=== PATIENT | female | born 1935 | race Caucasian/White ===

== ENCOUNTER 2021-05-17 18:47 | Inpatient (IN) | payer MEDICARE, BC ==
[~2021-05-17] VITALS: Ht 160 cm; Wt 49.0 kg
--- NOTE | 2021-05-17 20:03 | NUR ---
URINE SAMPLE AND COVID SWAB SENT TO LAB
[2021-05-17 20:11] LABS: BASOPHILS # (AUTO) 0.1 K/uL (0.0-0.2); EOSINOPHILS % (AUTO) 2.3 % (0.0-6.0); HEMATOCRIT 32 % (33-45); HEMOGLOBIN 10.6 g/dL (11.5-14.8); LYMPHOCYTES # (AUTO) 1.4 K/uL (0.8-4.8); LYMPHOCYTES % (AUTO) 23.1 % (20.0-44.0); MEAN CORPUSCULAR HGB CONC 33 g/dl (31.0-36.0); MEAN CORPUSCULAR VOLUME 96 fL (82-100); MONOCYTES # (AUTO) 0.7 K/uL (0.1-1.30); MONOCYTES % (AUTO) 10.8 % (2.0-12.0); NEUTROPHILS # (AUTO) 3.8 K/uL (1.8-8.9); NEUTROPHILS % (AUTO) 62.8 % (43.0-81.0); PLATELET COUNT (AUTO) 227 K/uL (150-450); RED BLOOD CELL COUNT(AUTO) 3.33 MIL/uL (4.0-5.2)
[2021-05-17 20:14] LABS: BILIRUBIN,URINE NEGATIVE (NEGATIVE); COLOR,URINE YELLOW (YELLOW); LEUKOCYTE ESTERASE ,URINE NEGATIVE (NEGATIVE); NITRITE, URINE NEGATIVE (NEGATIVE); PH,URINE 5.5 (5.0-8.0); PROTEIN,URINE 30 mg/dl (NEGATIVE); UGLUCOSE NEGATIVE (NEGATIVE); UROBILINOGEN,URINE 0.2 EU/dL (0.2)
[2021-05-17 20:27] LABS: ALANINE AMINOTRANSFERASE 47 U/L (12-78); ALBUMIN 3.3 g/dL (3.4-5.0); ALCOHOL, BLOOD < 3 mg/dL (0-0); ALKALINE PHOSPHATASE 141 U/L (46-116); ASPARTATE AMINOTRANSFERASE 23 U/L (15-37); BILIRUBIN,DIRECT 0.1 mg/dL (0.0-0.2); BILIRUBIN,TOTAL 0.3 mg/dL (0.2-1.0); CALCIUM, SERUM 8.7 mg/dL (8.5-10.1); CARBON DIOXIDE 27 mmol/L (21-32); CHLORIDE 103 mmol/L (98-107); CREATININE 0.8 mg/dL (0.6-1.3); GLUCOSE 245 mg/dL (74-106); POTASSIUM 4.1 mmol/L (3.5-5.1); SODIUM SERUM 140 mmol/L (136-145); TOTAL PROTEIN, SERUM 6.9 g/dL (6.4-8.2); UREA NITROGEN, BLOOD 23 mg/dL (7-18)
--- NOTE | 2021-05-17 20:28 | NUR ---
GOT BED 220-B
[2021-05-17 20:30] LABS: ACETAMINOPHEN 0 ug/ml (10-30)
[2021-05-17 20:33] LABS: RBC,URINE 0-2 /HPF (0-2); WBC,URINE 0-2 /HPF (0-3)
[2021-05-17 20:34] LABS: BACTERIA,URINE RARE /HPF (None Seen); MUCUS,URINE Many /LPF (None Seen)
[2021-05-17] MEDS ORDERED: MELO-107 PO (21:08)
[2021-05-17] MEDS ORDERED: FLUT16SP BNOSTRILS (21:08)
[2021-05-17] MEDS ORDERED: INSU100V7 SQ ×2 (21:08)
[2021-05-17] MEDS ORDERED: PROP50TA3 PO (21:08)
[2021-05-17] MEDS ORDERED: TRAM50TA2 PO (21:08)
[2021-05-17] MEDS ORDERED: GABA-532 PO (21:08)
[2021-05-17] MEDS ORDERED: ROSU10TA2 PO (21:08)
[2021-05-17] MEDS ORDERED: DULO30CA2 PO (21:08)
[2021-05-17] MEDS ORDERED: LISI10TA30 PO (21:08)
[2021-05-17] MEDS ORDERED: CHOL400T11 PO (21:08)
[2021-05-17] MEDS ORDERED: INSU100I28 SQ (21:08)
[2021-05-17] MEDS ORDERED: QUET25TA PO (21:08)
--- NOTE | 2021-05-17 21:20 | NUR ---
RN NOTES RECEIVED ER ADMISSION REPORT FROM, [facility]. ALL PERTINENT ADMISSION INFO REGARDING PT NOTED. WILL WAIT FOR PT TO BE TRANSFERRED TO UNIT AND ADDRESS NEEDS ACCORDINGLY. ACCOUNT PLANNER MADE AWARE.
--- NOTE | 2021-05-17 21:24 | NUR ---
REPORT NIKKI BUENO AT [facility]
--- NOTE | 2021-05-17 22:05 | NUR ---
RN NOTES RECEIVED PT FROM ER VIA RJRELIE ACCOMPANIED BY 1 ER STAFF AND TRANSFERRED TO BED VIA 1 PERSON ASSIST. PT IS A/OX2-3; ON ROOM AIR WITH RESPIRATIONS EVEN AND UNLABORED. WILL DO COMPREHENSIVE PHYSICAL ASSESSMENT AND PATIENT CARE. CALL LIGHT WITHIN REACH, SAFETY MEASURES AND ISOLATION PRECAUTION IN PLACE, WILL CONTINUE MONITOR AND ASSESS THROUGHOUT THE SHIFT. WILL CARRY OUT MD ORDERS ACCORDINGLY. SUPERVISOR COMPOUNDING AND FINISHING MADE AWARE.
--- NOTE | 2021-05-17 22:06 | NUR ---
RN NOTES ADMITTED THIS 86Y/O FEMALE PT, ADMIT FROM [facility] ER; INTIALLY FROM [facility]ING [facility] , ADMITTED TO [facility] ON 5150 HOLD, PER HOLD DTO; GRAVELY DISABLE VERBALLY AGGRESSIVE TOWARDS STAFF, INCREASED AGITATION, UNABLE TO CONTACT FOR SAFETY, UPON FACE TO FACE ASSESSMENT PATIENT IS A/0X2-3; ANXIOUS, SUSPICIOUS, DISORGANIZED, EASILY AGITATED TRIGGERED BY UNFAMILIAR PLACE AND FACES. PT REFUSED FULL BODY/SKIN ASSESSMENT AND VITALS. UNABLE TO GET PERTINENT MEDICAL AND NON MEDICAL INFO DUE TO PT'S REFUSAL. FILM PRODUCER AND MD WILL BE NOTIFIED. BELONGINGS & CONTRABAND WERE DONE AND LISTED. PT ALSO REFUSED TO SIGN ALL ADMISSION PAPERWORK AND DOCUMENTS DUE TO MENTATION CONDITION. PT RIGHTS DISCUSS BY PUNCHER, PROVIDED TO PT, WITH HANDBOOK AND MEDICATION GUIDE, ENVIRONMENTAL SAFETY CHECK DONE, ENCOURAGED PT TO VERBALIZE CONCERNS TO STAFF, ORIENTED TO UNIT POLICY. PT IN NO ACUTE DISTRESS, V/S TAKEN AND RECORDED, DENIES OF ANY PAIN. WILL CONTINUE TO MONITOR AND ASSESS THROUGHOUT THE SHIFT
--- NOTE | 2021-05-17 22:10 | NUR ---
PATIENT TRANSFERRED TO 220
--- NOTE | 2021-05-17 22:14 | NUR ---
RN NOTES INITIAL VITAL SIGNS TAKEN; PT REFUSED FOR BP CHECK. EXPLAINED RISKS AND BENEFITS BUT PT STILL REFUSED. RN ABLE TO GET TEMP, RR, HR AND O2 SAT. SHEARING MACHINE OPERATOR MADE AWARE.
--- NOTE | 2021-05-17 22:15 | NUR ---
RN NOTES PT REFUSED SKIN CHECK/ASSESSMENT, RISK AND BENEFITS EXPLAINED BUT PT STILL REFUSED. CAIN PALMER MADE AWARE. WILL RE-ATTEMPT WITH THE SHIFT. WILL CONTINUE TO MONITOR AND PROVIDE SAFE AND COMFORTABLE ENVIRONMENT FOR THE PT. Addendum: 05/18/21 at 0415 by JEREMÍAS KHALIL RN RN NOTES PT REFUSED SKIN CHECK/ASSESSMENT, RISK AND BENEFITS EXPLAINED BUT PT STILL REFUSED. INTERNET MERCHANT MADE AWARE. WILL RE-ATTEMPT WITHIN THE SHIFT.PT ALSO REFUSED TO WEAR HOSPITAL GOWN. WILL CONTINUE TO MONITOR AND PROVIDE SAFE AND COMFORTABLE ENVIRONMENT FOR THE PT.
[2021-05-17] MEDS ORDERED: MAGNESIUM HYDROXIDE 30 ML UDC PO PRN (22:30)
[2021-05-17] MEDS ORDERED: BLOOD SUGAR DIAGNOSTIC 1 EACH STRIP IN ONE (22:30)
[2021-05-17] MEDS ORDERED: MAG HYDROX/AL HYDROX/SIMETH 30 ML UDC PO PRN (22:30)
--- NOTE | 2021-05-17 22:45 | NUR ---
RN NOTES PT REFUSED FOR BLOOD SUGAR CHECK; EXPLAINED RISK AND BENEFITS BUT PT STILL REFUSED. RN ACKNOWLEDGED. TRAIN CALLER MADE AWARE. WILL CONTINUE TO MONITOR AND PROVIDE SAFE ENVIRONMENT TO PT THROUGHOUT THE SHIFT.
--- NOTE | 2021-05-18 06:44 | NUR ---
RN NOTES TRIED CALL MR GLENNY VIZCAINO @[phone] TO NOTIFY ABOUT PT'S ADMISSION,; BUT WAS AVDISED THATS ITS A WRONG NUMBER. LABOR OPERATOR MADE AWARE. WILL ENDORSE TO AM SHIFT TO FOLLOW THROUGH.
[2021-05-18] MEDS: ACETAMINOPHEN 325 MG TABLET PO PRN (06:54)
--- NOTE | 2021-05-18 07:00 | NUR ---
RN CLOSING NOTE: PATIENT REMAINS IN ROOM IN NO SIGNS OF RESPIRATORY DISTRESS, PATIENT STILL ROOM AIR. SAFETY MEASURES IMPLEMENTED, BED IN LOWEST POSITION, LOCKED, SIDE RAILS UP, CALL LIGHT WITHIN REACH. ALL NEEDS AND ORDERS ADDRESSED DURING THE SHIFT.PATIENT KEPT CLEAN AND COMFORTABLE WITHIN THE SHIFT. PATIENT ENDORSED TO INCOMING SHIFT RN WITH STABLE VITAL SIGN AND FOR CONTINUITY OF CARE.
[2021-05-18] MEDS: clonazePAM 0.5 MG TABLET PO PRN ×2 (07:37→21:04)
--- NOTE | 2021-05-18 07:40 | NUR ---
RN-NOTES NOTED PATIENT VERY ANXIOUS UNABLE TO SIT STILL, PACING IN AND OUT HER ROOM. REDIRECTED AND KLONOPIN 0.25MG P.O GIVEN PRN ORDER. WILL CONT. MONITORING FOR SAFETY AND BEHAVIOR.
[2021-05-18 08:00] VITALS: BP 132/69
[2021-05-18] MEDS ORDERED: DEXTROSE 50%-WATER 50 ML DISP.SYRIN IV PRN (08:30)
--- NOTE | 2021-05-18 08:40 | NUR ---
RN-NOTES PATIENT IN THE DAY ROOM UP IN THE NEL CHAIR CALM AT THIS TIME,NO ACUTE DISTRESS NOTED.
[2021-05-18] MEDS: GABAPENTIN 300 MG CAPSULE PO SCH ×3 (09:37→16:34)
[2021-05-18] MEDS: CHOLECALCIFEROL (VITAMIN D 3) 400 UNIT TABLET PO SCH (09:37)
[2021-05-18] MEDS: TRAMADOL HCL 50 MG TABLET PO SCH ×2 (09:38→16:34)
[2021-05-18] MEDS: LISINOPRIL (10MG) 10 MG TABLET PO SCH (09:39)
[2021-05-18] MEDS: FLUTICASONE PROPIONATE 16 GM BOTTLE NS SCH (09:42)
[2021-05-18 09:57] LABS: BASOPHILS % (AUTO) 0.5 % (0.0-2.0); EOSINOPHILS % (AUTO) 0.9 % (0.0-6.0); HEMATOCRIT 33 % (33-45); HEMOGLOBIN 10.9 g/dL (11.5-14.8); LYMPHOCYTES # (AUTO) 0.7 K/uL (0.8-4.8); LYMPHOCYTES % (AUTO) 8.8 % (20.0-44.0); MEAN CORPUSCULAR HGB CONC 33 g/dl (31.0-36.0); MEAN CORPUSCULAR VOLUME 97 fL (82-100); MONOCYTES # (AUTO) 0.5 K/uL (0.1-1.30); MONOCYTES % (AUTO) 7.3 % (2.0-12.0); NEUTROPHILS # (AUTO) 6.1 K/uL (1.8-8.9); NEUTROPHILS % (AUTO) 82.5 % (43.0-81.0); PLATELET COUNT (AUTO) 232 K/uL (150-450); RED BLOOD CELL COUNT(AUTO) 3.44 MIL/uL (4.0-5.2); WHITE BLOOD COUNT (AUTO) 7.4 K/uL (4.3-11.0)
[2021-05-18 10:14] LABS: CHOLESTEROL 191 mg/dL (<200); HDL CHOLESTEROL 101 mg/dL (40-60); LDL 61 mg/dL (0-99); TRIGLYCERIDES 125 mg/dL (30-150)
[2021-05-18 10:17] LABS: ALBUMIN 3.4 g/dL (3.4-5.0); BILIRUBIN,TOTAL 0.5 mg/dL (0.2-1.0); CALCIUM, SERUM 8.8 mg/dL (8.5-10.1); POTASSIUM 4.1 mmol/L (3.5-5.1); TOTAL PROTEIN, SERUM 6.9 g/dL (6.4-8.2)
[2021-05-18] MEDS: INSULIN REGULAR, HUMAN 100 UNIT/ML 3 ML VIAL SQ PRN ×3 (10:33→17:30)
--- NOTE | 2021-05-18 10:37 | NUR ---
RN-NOTES RECEIVED A CALL FROM LAB REGARDING PATIENT BS OF 463MG/DL, DR. WOODRUFF MADE AWARE WITH T.O TO GIVE 15 UNITS OF REGULAR INSULIN. NOTED AND CARRIED OUT.
[2021-05-18] MEDS: BLOOD SUGAR DIAGNOSTIC 1 EACH STRIP VI SCH ×3 (11:55→21:45)
--- NOTE | 2021-05-18 15:49 | NUR ---
RN-CO: DR PAREKH WAS CALLED FOR NEURO CONSULT. LEFT MESSAGE.
[2021-05-18 16:00] VITALS: BP 152/90
[2021-05-18 19:58] VITALS: BP 156/83
--- NOTE | 2021-05-18 21:04 | NUR ---
PER NURSING ASSESSMENT, PT IS ANXIOUS AND AGITATED, WALKING UP AND DOWN THE HALLWAY AND RESTLESS. KLONOPIN 0.25MG PO Q4HR PRN ADMINISTERED AT THIS TIME FOR ANXIETY/ AGITATION. WILL CONTINUE TO MONITOR.
[2021-05-18] MEDS: QUETIAPINE FUMARATE 25 MG TABLET PO SCH (21:34)
[2021-05-18] MEDS: ATORVASTATIN 10 MG TABLET PO SCH (21:34)
[2021-05-18] MEDS: INSULIN GLARGINE, 100 UNIT/ML CARTRIDGE SQ SCH (21:45)
[2021-05-18] MEDS: *INSULIN REGULAR(HUMULIN R)HUM 100 UNIT/ML VIAL SQ PRN (21:48)
[2021-05-19] MEDS: ACETAMINOPHEN 325 MG TABLET PO PRN ×2 (06:16→20:02)
--- NOTE | 2021-05-19 06:16 | NUR ---
PT C/O ACHING PAIN. PER PT REQUEST TYLENOL 65OMG PO Q6HR PRN ADMINISTERED AT THIS TIME PER ORDER. WILL CONTINUE TO MONITOR
--- NOTE | 2021-05-19 06:38 | NUR ---
RN CLOSING NOTES PATIENT AWAKE IN BED AT THIS TIME. PATIENT WAS AGITATED, ADMINISTERED MEDICATION AND PAIN MEDICATION PER ORDER . PT DENIES SI/HI. DENIES VISUAL AND AUDITORY HALLUCINATION. NO TREMORS OR EPS NOTED. SAFETY PRECAUTIONS IN PLACE AND MAINTAINED AT ALL TIMES. BED IN LOWEST LOCKED POSITION, HOB ELEVATED, SIDE RAILS UP X2, CALL LIGHT AND TABLE WITHIN REACH, WILL ENDORSE TO AM SHIFT NURSE FOR CO
[2021-05-19 08:00] VITALS: BP 115/69
[2021-05-19] MEDS: BLOOD SUGAR DIAGNOSTIC 1 EACH STRIP VI SCH ×4 (08:12→22:14)
[2021-05-19] MEDS: INSULIN ASPART/LISPRO 100 UNIT/ML CARTRIDGE SQ SCH (09:00)
--- NOTE | 2021-05-19 09:00 | NUR ---
[facility]/RN ACCUCHECK WITH BS= 82. NO SCHEDULED INSULIN COVERAGE. DR WOODRUFF MADE AWARE AND AGREED.
[2021-05-19] MEDS: MELOXICAM 7.5 MG TABLET PO SCH (09:33)
[2021-05-19] MEDS: GABAPENTIN 300 MG CAPSULE PO SCH ×3 (09:33→17:38)
[2021-05-19] MEDS: DULOXETINE HCL 30 MG CAPSULE.DR PO SCH (09:33)
[2021-05-19] MEDS: QUETIAPINE FUMARATE 25 MG TABLET PO SCH ×2 (09:33→21:36)
[2021-05-19] MEDS: CHOLECALCIFEROL (VITAMIN D 3) 400 UNIT TABLET PO SCH (09:33)
[2021-05-19] MEDS: LISINOPRIL (10MG) 10 MG TABLET PO SCH (09:34)
[2021-05-19] MEDS: FLUTICASONE PROPIONATE 16 GM BOTTLE NS SCH (09:34)
[2021-05-19] MEDS: TRAMADOL HCL 50 MG TABLET PO SCH ×2 (09:52→17:38)
--- NOTE | 2021-05-19 10:50 | NUR ---
[facility]: J CARLOS contacted [facility] directly to Deanne ([phone]) to see if pt is welcomed back, however, mailbox was full and this comic book writer was unable to leave a voicemail. J CARLOS contacted [place] directly ([phone]) directly spoke with ESTELA Tse ([phone]) ext [phone] who stated would have to be stable upon dc.
--- NOTE | 2021-05-19 10:50 | NUR ---
J CARLOS Initial Discharge Plan: Patient currently resides at [facility] located at [id number] [place] [id number]; ([phone]). Patient would want to return back. J CARLOS contacted [facility] directly to Deanne ([phone]) to see if pt is welcomed back, however, mailbox was full and this flex o writer operator was unable to leave a voicemail. J CARLOS contacted [place] directly ([phone]) directly spoke with ESTELA Tse ([phone]) ext [phone] who stated would have to be stable upon dc. J CARLOS will work with family, treatment team, and doctor to help coordinate appropriate discharge.
--- NOTE | 2021-05-19 10:56 | NUR ---
J CARLOS Family Contact: J CARLOS contacted patient's son Newton ([phone]) to discuss treatment and discharge plan. SW left a detailed voicemail wanting to gather collateral. J CARLOS mentioned in voicemail that [facility] will take pt back if pt is stable and does not have any behavioral issues, but appeared to be doubtful of taking pt back (spoke with Carmencita PALMER from [facility]).
[2021-05-19] MEDS: *INSULIN REGULAR(HUMULIN R)HUM 100 UNIT/ML VIAL SQ PRN (12:04)
--- NOTE | 2021-05-19 12:15 | NUR ---
[facility]/RN ACCUCHECK WITH VK=005. INSULIN 10 UNITS SQ GIVEN PER SCALE. DR. WOODRUFF CALLED FOR ORDERS VIA [employer].
--- NOTE | 2021-05-19 13:06 | NUR ---
GPS/RN DR WOODRUFF CALLED BACK. NEW ORDER: CONTINUE TO MONITOR.
[2021-05-19 16:00] VITALS: BP 118/67
[2021-05-19] MEDS: INSULIN REGULAR, HUMAN 100 UNIT/ML 3 ML VIAL SQ PRN ×2 (17:43→22:20)
--- NOTE | 2021-05-19 20:10 | NUR ---
PRN TYLENOL 650 MG GIVEN VIA PO PER PATIENT REQUEST WITH PAIN SCALE 3/10 ON BILATERAL LEG. SON IS INTERACTING WITH THE PATIENT. WILL CONTINUE MONITOR
[2021-05-19 20:22] VITALS: BP 155/47
[2021-05-19] MEDS: ATORVASTATIN 10 MG TABLET PO SCH (21:36)
[2021-05-19] MEDS: INSULIN GLARGINE, 100 UNIT/ML CARTRIDGE SQ SCH (22:18)
[2021-05-19] MEDS: clonazePAM 0.5 MG TABLET PO PRN (23:07)
[2021-05-20] MEDS: BLOOD SUGAR DIAGNOSTIC 1 EACH STRIP VI SCH ×4 (07:29→22:04)
[2021-05-20 08:00] VITALS: BP 138/85
[2021-05-20] MEDS: GABAPENTIN 300 MG CAPSULE PO SCH ×3 (08:10→16:22)
[2021-05-20] MEDS: MELOXICAM 7.5 MG TABLET PO SCH (08:10)
[2021-05-20] MEDS: CHOLECALCIFEROL (VITAMIN D 3) 400 UNIT TABLET PO SCH (08:11)
[2021-05-20] MEDS: DULOXETINE HCL 30 MG CAPSULE.DR PO SCH (08:11)
[2021-05-20] MEDS: QUETIAPINE FUMARATE 25 MG TABLET PO SCH ×2 (08:12→21:12)
[2021-05-20] MEDS: LISINOPRIL (10MG) 10 MG TABLET PO SCH (08:13)
[2021-05-20] MEDS: TRAMADOL HCL 50 MG TABLET PO SCH ×3 (08:14→17:28)
[2021-05-20] MEDS: INSULIN ASPART/LISPRO 100 UNIT/ML CARTRIDGE SQ SCH (09:41)
[2021-05-20] MEDS: FLUTICASONE PROPIONATE 16 GM BOTTLE NS SCH (09:42)
[2021-05-20 16:00] VITALS: BP 149/78
[2021-05-20] MEDS: *INSULIN REGULAR(HUMULIN R)HUM 100 UNIT/ML VIAL SQ PRN ×2 (17:16→21:30)
[2021-05-20 20:10] VITALS: BP 144/75
[2021-05-20] MEDS: ATORVASTATIN 10 MG TABLET PO SCH (21:11)
[2021-05-20] MEDS: INSULIN GLARGINE, 100 UNIT/ML CARTRIDGE SQ SCH (21:28)
[2021-05-20] MEDS: ACETAMINOPHEN 325 MG TABLET PO PRN (21:44)
--- NOTE | 2021-05-20 21:44 | NUR ---
[facility]-RN NOTES: LOWER BACK PAIN PATIENT C/O LOWER BACK PAIN. ON A PAIN SCALE OF 3/10. PRN ACETAMINOPHEN 650MG PO GIVEN ORDERED. WILL CONTINUE TO REASSESS.
[2021-05-20] MEDS: TEMAZEPAM 7.5 MG CAPSULE PO PRN (21:51)
--- NOTE | 2021-05-20 21:51 | NUR ---
[facility]-RN NOTES: INSOMNIA PATIENT C/O INABILITY TO SLEEP. PRN RESTORIL 7.5MG PO GIVEN ORDERED. WILL CONTINUE TO MONITOR.
[2021-05-21] MEDS: TRAMADOL HCL 50 MG TABLET PO SCH ×5 (00:20→17:05)
--- NOTE | 2021-05-21 00:36 | NUR ---
[facility]-RN NOTES: PATIENT REFUSED SCHEDULED TRAMADOL AT 0000. DESPITE OF EXPLANATION THE RISKS AND BENEFITS. PATIENT STATED, "I'M TIRED, I WANNA SLEEP". WILL CONTINUE TO MONITOR.
--- NOTE | 2021-05-21 07:19 | NUR ---
RN OPENING NOTES PATIENT AWAKE IN BED AT THIS TIME. PATIENT IS CALM. PT DENIES SI/HI. DENIES VISUAL AND AUDITORY HALLUCINATION. NO TREMORS OR EPS NOTED. SAFETY PRECAUTIONS IN PLACE AND MAINTAINED AT ALL TIMES. BED IN LOWEST LOCKED POSITION, HOB ELEVATED, SIDE RAILS UP X2, CALL LIGHT AND TABLE WITHIN REACH, WILL CONTINUE TO MONITOR
[2021-05-21] MEDS: ACETAMINOPHEN 325 MG TABLET PO PRN (07:26)
--- NOTE | 2021-05-21 07:26 | NUR ---
[facility]-RN NOTES: LOWER BACK PAIN PATIENT C/O LOWER BACK PAIN. ON A PAIN SCALE OF 3/10. PRN ACETAMINOPHEN 650MG PO GIVEN ORDERED. WILL CONTINUE TO REASSESS.
[2021-05-21] MEDS: BLOOD SUGAR DIAGNOSTIC 1 EACH STRIP VI SCH ×4 (07:44→22:14)
[2021-05-21] MEDS: INSULIN REGULAR, HUMAN 100 UNIT/ML 3 ML VIAL SQ PRN ×3 (07:44→17:08)
[2021-05-21 08:00] VITALS: BP 159/78
[2021-05-21] MEDS: FLUTICASONE PROPIONATE 16 GM BOTTLE NS SCH (08:16)
[2021-05-21] MEDS: GABAPENTIN 300 MG CAPSULE PO SCH ×3 (08:17→17:05)
[2021-05-21] MEDS: MELOXICAM 7.5 MG TABLET PO SCH (08:17)
[2021-05-21] MEDS: DULOXETINE HCL 30 MG CAPSULE.DR PO SCH (08:17)
[2021-05-21] MEDS: QUETIAPINE FUMARATE 25 MG TABLET PO SCH ×2 (08:17→21:23)
[2021-05-21] MEDS: CHOLECALCIFEROL (VITAMIN D 3) 400 UNIT TABLET PO SCH (08:17)
[2021-05-21] MEDS: LISINOPRIL (10MG) 10 MG TABLET PO SCH (08:18)
[2021-05-21] MEDS: INSULIN ASPART/LISPRO 100 UNIT/ML CARTRIDGE SQ SCH (08:18)
--- NOTE | 2021-05-21 08:45 | NUR ---
RN NOTE PATIENTS BLOOD SUGAR NOTED @ 55. NOTIFIED WHO GAVE NEW ORDER TO DC LANTUS 11 UNITS AT NIGHT. AND OKAY TO GIVE ORANGE JUICE.
[2021-05-21] MEDS: clonazePAM 0.5 MG TABLET PO PRN (13:32)
--- NOTE | 2021-05-21 13:32 | NUR ---
RN NOTE PATIENT IS RESTLESS AND AGITATED M/B TRYING TO GET OUT OF BED AND SEVERAL TIMES WITH NO APPARENT REASON. UNCOOPERATIVE TO STAFF. PRN KLONOPIN 0.25 GIVEN VIA PO. WILL CLOSELY MONITOR. SAFETY MAINTAINS.
[2021-05-21 16:00] VITALS: BP 113/73
--- NOTE | 2021-05-21 18:03 | NUR ---
RN CLOSING NOTES PATIENT AWAKE IN BED AT THIS TIME. PATIENT REMAINED STABLE THROUGHOUT SHIFT. PT IS CALM AT THIS TIME, PT DENIES SI/HI. DENIES VISUAL AND AUDITORY HALLUCINATION. NO TREMORS OR EPS NOTED. SAFETY PRECAUTIONS IN PLACE AND MAINTAINED AT ALL TIMES. BED IN LOWEST LOCKED POSITION, HOB ELEVATED, SIDE RAILS UP X2, CALL LIGHT AND TABLE WITHIN REACH, WILL ENDORSE TO ONCOMING SHIFT
[2021-05-21 19:56] VITALS: BP 127/77
[2021-05-21] MEDS: ATORVASTATIN 10 MG TABLET PO SCH (21:23)
[2021-05-21] MEDS: *INSULIN REGULAR(HUMULIN R)HUM 100 UNIT/ML VIAL SQ PRN (22:21)
[2021-05-22] MEDS: TRAMADOL HCL 50 MG TABLET PO SCH ×4 (00:41→18:08)
[2021-05-22] MEDS: BLOOD SUGAR DIAGNOSTIC 1 EACH STRIP VI SCH ×4 (07:35→21:18)
[2021-05-22 08:00] VITALS: BP 122/67
--- NOTE | 2021-05-22 08:49 | NUR ---
J CARLOS Family Contact: J CARLOS received a voicemail from son Newton ([phone]) who stated that he has found pt a new assisted living called [facility] and requested from this J CARLOS to contact director Renard ([phone]) to coordinate.
--- NOTE | 2021-05-22 08:50 | NUR ---
[facility]: J CARLOS contacted Director Renard ([phone]) to coordinate and he stated he is accepting pt but would want to evaluate pt on 05/22/2021 or 05/23/2021.
[2021-05-22] MEDS: FLUTICASONE PROPIONATE 16 GM BOTTLE NS SCH (09:29)
[2021-05-22] MEDS: DULOXETINE HCL 30 MG CAPSULE.DR PO SCH (09:38)
[2021-05-22] MEDS: LISINOPRIL (10MG) 10 MG TABLET PO SCH (09:38)
[2021-05-22] MEDS: GABAPENTIN 300 MG CAPSULE PO SCH ×3 (09:39→17:52)
[2021-05-22] MEDS: CHOLECALCIFEROL (VITAMIN D 3) 400 UNIT TABLET PO SCH (09:39)
[2021-05-22] MEDS: QUETIAPINE FUMARATE 25 MG TABLET PO SCH ×2 (09:40→21:06)
[2021-05-22] MEDS: MELOXICAM 7.5 MG TABLET PO SCH (09:40)
[2021-05-22] MEDS: INSULIN ASPART/LISPRO 100 UNIT/ML CARTRIDGE SQ SCH (09:52)
[2021-05-22] MEDS: INSULIN REGULAR, HUMAN 100 UNIT/ML 3 ML VIAL SQ PRN ×2 (12:38→17:25)
[2021-05-22 16:00] VITALS: BP 122/66
[2021-05-22] MEDS: ACETAMINOPHEN 325 MG TABLET PO PRN (19:32)
[2021-05-22 19:49] VITALS: BP 137/67
[2021-05-22] MEDS: clonazePAM 0.5 MG TABLET PO PRN (21:04)
[2021-05-22] MEDS: ATORVASTATIN 10 MG TABLET PO SCH (21:05)
[2021-05-22] MEDS: *INSULIN REGULAR(HUMULIN R)HUM 100 UNIT/ML VIAL SQ PRN (21:23)
[2021-05-22] MEDS: TEMAZEPAM 7.5 MG CAPSULE PO PRN (22:36)
[2021-05-23] MEDS: TRAMADOL HCL 50 MG TABLET PO SCH ×4 (00:09→17:22)
[2021-05-23 08:00] VITALS: BP 145/76
[2021-05-23] MEDS: INSULIN ASPART/LISPRO 100 UNIT/ML CARTRIDGE SQ SCH (08:05)
[2021-05-23] MEDS: FLUTICASONE PROPIONATE 16 GM BOTTLE NS SCH (08:13)
[2021-05-23] MEDS: BLOOD SUGAR DIAGNOSTIC 1 EACH STRIP VI SCH ×4 (08:13→22:00)
[2021-05-23] MEDS: CHOLECALCIFEROL (VITAMIN D 3) 400 UNIT TABLET PO SCH (08:39)
[2021-05-23] MEDS: LISINOPRIL (10MG) 10 MG TABLET PO SCH (08:40)
[2021-05-23] MEDS: QUETIAPINE FUMARATE 25 MG TABLET PO SCH ×2 (08:41→21:13)
[2021-05-23] MEDS: GABAPENTIN 300 MG CAPSULE PO SCH ×3 (08:41→17:22)
[2021-05-23] MEDS: DULOXETINE HCL 30 MG CAPSULE.DR PO SCH (08:41)
[2021-05-23] MEDS: MELOXICAM 7.5 MG TABLET PO SCH (08:41)
[2021-05-23] MEDS: *INSULIN REGULAR(HUMULIN R)HUM 100 UNIT/ML VIAL SQ PRN (10:26)
[2021-05-23] MEDS: INSULIN REGULAR, HUMAN 100 UNIT/ML 3 ML VIAL SQ PRN ×3 (13:28→21:17)
--- NOTE | 2021-05-23 13:30 | NUR ---
RECEIVED PT @ 2551 FROM CHARGE NURSE.
[2021-05-23] MEDS: clonazePAM 0.5 MG TABLET PO PRN (13:46)
--- NOTE | 2021-05-23 14:31 | NUR ---
SW Note: SW met with patient to conduct individual therapy. Pt appeared to present with euthymic mood. Pt appeared to be somewhat confused but was understanding of her situation and where she is at. Pt expressed that she misses her "cat" and wants to go home. SW attempted to comfort pt and actively listened.
[2021-05-23 16:02] VITALS: BP 100/51
[2021-05-23] MEDS: NEOM/POLY B SULF/HC OTIC SUSP 10 ML BOTTLE RIGHT EAR SCH ×2 (17:08→21:14)
[2021-05-23 20:00] VITALS: BP 132/59
[2021-05-23] MEDS: ATORVASTATIN 10 MG TABLET PO SCH (21:13)
[2021-05-23] MEDS: ACETAMINOPHEN 325 MG TABLET PO PRN (21:13)
[2021-05-23] MEDS: TEMAZEPAM 7.5 MG CAPSULE PO PRN (21:13)
[2021-05-24] MEDS: TRAMADOL HCL 50 MG TABLET PO SCH ×4 (05:50→17:42)
[2021-05-24] MEDS: BLOOD SUGAR DIAGNOSTIC 1 EACH STRIP VI SCH ×4 (07:54→21:28)
[2021-05-24 08:00] VITALS: BP 132/62
[2021-05-24] MEDS: QUETIAPINE FUMARATE 25 MG TABLET PO SCH ×2 (08:20→21:25)
[2021-05-24] MEDS: CHOLECALCIFEROL (VITAMIN D 3) 400 UNIT TABLET PO SCH (08:20)
[2021-05-24] MEDS: DULOXETINE HCL 30 MG CAPSULE.DR PO SCH (08:20)
[2021-05-24] MEDS: GABAPENTIN 300 MG CAPSULE PO SCH ×3 (08:20→17:16)
[2021-05-24] MEDS: LISINOPRIL (10MG) 10 MG TABLET PO SCH (08:21)
[2021-05-24] MEDS: MELOXICAM 7.5 MG TABLET PO SCH (08:21)
[2021-05-24] MEDS: FLUTICASONE PROPIONATE 16 GM BOTTLE NS SCH (08:39)
[2021-05-24] MEDS: INSULIN ASPART/LISPRO 100 UNIT/ML CARTRIDGE SQ SCH (09:00)
[2021-05-24] MEDS: INSULIN REGULAR, HUMAN 100 UNIT/ML 3 ML VIAL SQ PRN ×3 (09:19→17:17)
[2021-05-24] MEDS: NEOM/POLY B SULF/HC OTIC SUSP 10 ML BOTTLE RIGHT EAR SCH ×4 (09:20→21:28)
--- NOTE | 2021-05-24 09:55 | NUR ---
[facility]: SW contacted Director Renard ([phone]) evaluated pt on 05/23/21 who stated they are accepting pt.
--- NOTE | 2021-05-24 10:17 | NUR ---
J CARLOS Family Contact: J CARLOS contacted patient's son Newton ([phone]) and notified that no discharge order. Newton requested to speak to WE[facility] Garcia. J CARLOS notified
--- NOTE | 2021-05-24 10:50 | NUR ---
RN-NOTES PER WEST ESCOBEDO HOLD NOVOLOG/HUMALOG 25 UNITS. NOTED AND CARRIED OUT. Addendum: 05/24/21 at 1135 by JOSE STANTON RN PATIENT BS AROUND 1030 WAS 260MG/DL.WEST ESCOBEDO WAS MADE AWARE.
[2021-05-24 16:00] VITALS: BP 126/69
[2021-05-24 20:00] VITALS: BP 153/88
--- NOTE | 2021-05-24 21:13 | NUR ---
[facility]-RN NOTES: LOWER BACK PAIN PATIENT C/O LOWER BACK PAIN. ON A PAIN SCALE OF 3/10. PRN ACETAMINOPHEN 650MG PO GIVEN ORDERED. WILL CONTINUE TO REASSESS.
[2021-05-24] MEDS: ATORVASTATIN 10 MG TABLET PO SCH (21:25)
[2021-05-24] MEDS: INSULIN GLARGINE, 100 UNIT/ML CARTRIDGE SQ SCH (21:43)
[2021-05-24] MEDS: *INSULIN REGULAR(HUMULIN R)HUM 100 UNIT/ML VIAL SQ PRN (21:44)
[2021-05-24] MEDS: TEMAZEPAM 7.5 MG CAPSULE PO PRN (22:03)
--- NOTE | 2021-05-24 22:03 | NUR ---
[facility]-RN NOTES: INSOMNIA PATIENT C/O INABILITY TO SLEEP. PRN RESTORIL 7.5MG PO GIVEN ORDERED. WILL CONTINUE TO MONITOR.
[2021-05-25] MEDS: TRAMADOL HCL 50 MG TABLET PO SCH ×5 (00:52→23:19)
[2021-05-25 07:25] LABS: BASOPHILS # (AUTO) 0.1 K/uL (0.0-0.2); BASOPHILS % (AUTO) 0.6 % (0.0-2.0); EOSINOPHILS % (AUTO) 2.3 % (0.0-6.0); HEMATOCRIT 29 % (33-45); HEMOGLOBIN 9.6 g/dL (11.5-14.8); LYMPHOCYTES # (AUTO) 0.8 K/uL (0.8-4.8); LYMPHOCYTES % (AUTO) 9.7 % (20.0-44.0); MEAN CORPUSCULAR HGB CONC 34 g/dl (31.0-36.0); MEAN CORPUSCULAR VOLUME 94 fL (82-100); MONOCYTES # (AUTO) 0.9 K/uL (0.1-1.30); NEUTROPHILS # (AUTO) 6.5 K/uL (1.8-8.9); NEUTROPHILS % (AUTO) 76.4 % (43.0-81.0); PLATELET COUNT (AUTO) 292 K/uL (150-450); RED BLOOD CELL COUNT(AUTO) 3.05 MIL/uL (4.0-5.2); WHITE BLOOD COUNT (AUTO) 8.6 K/uL (4.3-11.0)
[2021-05-25] MEDS: BLOOD SUGAR DIAGNOSTIC 1 EACH STRIP VI SCH ×4 (07:36→21:44)
[2021-05-25] MEDS: INSULIN REGULAR, HUMAN 100 UNIT/ML 3 ML VIAL SQ PRN ×3 (07:39→17:17)
[2021-05-25 07:57] LABS: CALCIUM, SERUM 9.2 mg/dL (8.5-10.1); CREATININE 1.1 mg/dL (0.6-1.3); POTASSIUM 4.7 mmol/L (3.5-5.1)
[2021-05-25 08:00] VITALS: BP 146/70
[2021-05-25] MEDS: MELOXICAM 7.5 MG TABLET PO SCH (08:32)
[2021-05-25] MEDS: QUETIAPINE FUMARATE 25 MG TABLET PO SCH ×2 (08:32→21:43)
[2021-05-25] MEDS: CHOLECALCIFEROL (VITAMIN D 3) 400 UNIT TABLET PO SCH (08:32)
[2021-05-25] MEDS: LISINOPRIL (10MG) 10 MG TABLET PO SCH (08:33)
[2021-05-25] MEDS: GABAPENTIN 300 MG CAPSULE PO SCH ×3 (08:37→16:15)
[2021-05-25] MEDS: FLUTICASONE PROPIONATE 16 GM BOTTLE NS SCH (08:38)
[2021-05-25] MEDS: NEOM/POLY B SULF/HC OTIC SUSP 10 ML BOTTLE RIGHT EAR SCH ×4 (08:38→20:39)
[2021-05-25] MEDS: DULOXETINE HCL 30 MG CAPSULE.DR PO SCH (08:43)
[2021-05-25 16:00] VITALS: BP 146/72
--- NOTE | 2021-05-25 16:04 | NUR ---
Court Hearing: Patient's court hearing for 7400 was today and it was upheld for GD.
[2021-05-25 20:00] VITALS: BP 123/56
[2021-05-25] MEDS: ATORVASTATIN 10 MG TABLET PO SCH (21:43)
[2021-05-25] MEDS: INSULIN GLARGINE, 100 UNIT/ML CARTRIDGE SQ SCH (21:46)
[2021-05-26] MEDS: ACETAMINOPHEN 325 MG TABLET PO PRN (04:10)
--- NOTE | 2021-05-26 04:33 | NUR ---
RN NOTE PATIENT COMPLAINING OF RIGHT HIP AND BACK PAIN. PRN TYLENOL 650 MG PO GIVEN ORDERED. WILL CONTINUE TO MONITOR PATIENT
--- NOTE | 2021-05-26 06:17 | NUR ---
RN CLOSING NOTE PATIENT CURRENTLY SLEEPING IN BED, BREATHING EVENLY AND UNLABORED, NO S/S OF DISTRESS OR SOB NOTED. PATIENT WAS VERY NEEDY, DEMANDING, ATTENTION SEEKING, UNCOOPERATIVE, SUSPICIOUS, CONFUSED AND ANXIOUS THROUGHOUT SHIFT. PT KEPT STATING SHE WAS KIDNAPPED AND NEEDED TO CALL HER MOTHER TO LET HER KNOW WHERE SHE IS, ALSO STATED SHE WAS FLYING TO [place] IN THE MORNING. STATED SHE WANTED TO GO TO BED BUT KEPT TRYING TO GET OUT OF BED. PT WAS ALSO DISTRUSTFUL AND SUSPICIOUS WHEN GIVEN MEDS STATING THAT HOW COULD SHE BE SURE SHE WAS GIVEN THE RIGHT MEDICATION, BUT TOOK THEM AFTER SOME REASSURANCE. PATIENT FINALLY FELL ASLEEP AROUND 12:30 AM BUT ONLY SLEPT A COUPLE HOURS. PT CONSTANTLY KEPT CALLING OUT FOR HELP BECAUSE SHE DIDN'T WANT TO BE LEFT ALONE IN ROOM, WAS UNCOOPERATIVE WHEN TOLD TO STAY IN BED. PT WAS MED COMPLIANT, MEDICATIONS GIVEN ORDERED AND PATIENT NEEDS MET THROUGHOUT SHIFT. PT VERY UNSTEADY WHEN AMBULATING TO BATHROOM, REQUIRED 2 PERSON ASSIST. ENCOURAGED PO HYDRATION AND GAVE PATIENT SNACK. UNABLE TO COLLECT URINE SAMPLE BECAUSE PATIENT WAS INCONTINENT WHILE SHE WAS SLEEPING. SAFETY MEASURES IN PLACE: BED LOCKED IN LOW POSITION, SIDE RAILS UP X 3, BED ALARM ON, Q15 MIN CHECKS FOR SAFETY. WILL ENDORSE TO DAY SHIFT NURSE FOR CONTINUITY OF CARE.
[2021-05-26] MEDS: TRAMADOL HCL 50 MG TABLET PO SCH ×3 (06:29→18:21)
[2021-05-26 08:00] VITALS: BP 163/76
[2021-05-26] MEDS: BLOOD SUGAR DIAGNOSTIC 1 EACH STRIP VI SCH ×4 (08:15→22:15)
--- NOTE | 2021-05-26 08:16 | NUR ---
RN OPENING NOTES RECEIVED PATIENT AWAKE, OUTBOARD MOTOR ASSEMBLER'S HELPED ME PLACE PATIENT INTO NEL - CHAIR , SAFE TRANSFER, C/O PAIN STATED RIGHT HIP AREA THROBBING HAD BEEN GIVEN ULTRAM/TRAMADOL PER ORDER ON EARLIER SHIFT, REPOSITIONED FOR COMFORT, BS = 86 NO INSULIN GIVEN AT THIS TIME, COOPERATIVE WITH ME AND EATING BREAKFAST ON OWN, NO ASPIRATION NOTED, ATTENTION SEEKING RE-DIRECTED AND HELD HAND TO REASSURE SHE WILL BE TAKEN CARE OF, TWO OUTBOARD MOTOR ASSEMBLER'S OBSERVING WHILE SITTING IN NEL- CHAIR FOR SAFETY, ALL AWARE WE NEED TO OBTAIN URINE SPECIMEN.
[2021-05-26] MEDS: DULOXETINE HCL 30 MG CAPSULE.DR PO SCH (09:03)
[2021-05-26] MEDS: GABAPENTIN 300 MG CAPSULE PO SCH ×3 (09:03→17:24)
[2021-05-26] MEDS: LISINOPRIL (10MG) 10 MG TABLET PO SCH (09:04)
[2021-05-26] MEDS: QUETIAPINE FUMARATE 25 MG TABLET PO SCH ×2 (09:04→21:38)
[2021-05-26] MEDS: CHOLECALCIFEROL (VITAMIN D 3) 400 UNIT TABLET PO SCH (09:05)
[2021-05-26] MEDS: MELOXICAM 7.5 MG TABLET PO SCH (09:05)
[2021-05-26 11:33] LABS: BASOPHILS # (AUTO) 0.1 K/uL (0.0-0.2); BASOPHILS % (AUTO) 0.7 % (0.0-2.0); EOSINOPHILS % (AUTO) 1.7 % (0.0-6.0); HEMATOCRIT 31 % (33-45); HEMOGLOBIN 10.1 g/dL (11.5-14.8); LYMPHOCYTES # (AUTO) 0.8 K/uL (0.8-4.8); LYMPHOCYTES % (AUTO) 9.3 % (20.0-44.0); MEAN CORPUSCULAR HGB CONC 33 g/dl (31.0-36.0); MEAN CORPUSCULAR VOLUME 95 fL (82-100); MONOCYTES # (AUTO) 0.7 K/uL (0.1-1.30); MONOCYTES % (AUTO) 8.6 % (2.0-12.0); NEUTROPHILS # (AUTO) 6.7 K/uL (1.8-8.9); NEUTROPHILS % (AUTO) 79.7 % (43.0-81.0); PLATELET COUNT (AUTO) 325 K/uL (150-450); RED BLOOD CELL COUNT(AUTO) 3.27 MIL/uL (4.0-5.2); WHITE BLOOD COUNT (AUTO) 8.4 K/uL (4.3-11.0)
[2021-05-26 11:54] LABS: CALCIUM, SERUM 9.7 mg/dL (8.5-10.1); CREATININE 1.1 mg/dL (0.6-1.3); POTASSIUM 4.6 mmol/L (3.5-5.1)
[2021-05-26] MEDS: *INSULIN REGULAR(HUMULIN R)HUM 100 UNIT/ML VIAL SQ PRN ×2 (12:50→18:45)
[2021-05-26] MEDS: FLUTICASONE PROPIONATE 16 GM BOTTLE NS SCH (12:59)
[2021-05-26] MEDS: NEOM/POLY B SULF/HC OTIC SUSP 10 ML BOTTLE RIGHT EAR SCH ×4 (12:59→21:37)
[2021-05-26 16:00] VITALS: BP 109/72
--- NOTE | 2021-05-26 18:40 | NUR ---
PATIENT IN NEL CHAIR, ATE 100% OF DINNER NO ASPIRATIONS NOTED, ABLE TO MAKE NEEDS KNOWN, C/O PAIN DESPITE PAIN MEDICATIONS GIVEN, APPEARS TO BE ON A REPETITIVE LOOP OF REPEATING NEED FOR PAIN MEDICATIONS, LAST BS = 308 INSULIN GIVEN PER SLIDING SCALE, ALL NEEDS TENDED TO IN A TIMELY MANNER, REPOSITIONED FOR COMFORT.
[2021-05-26 20:09] VITALS: BP 140/76
[2021-05-26] MEDS: ATORVASTATIN 10 MG TABLET PO SCH (21:38)
[2021-05-26] MEDS: INSULIN GLARGINE, 100 UNIT/ML CARTRIDGE SQ SCH (22:27)
[2021-05-27] MEDS: TRAMADOL HCL 50 MG TABLET PO SCH ×5 (00:37→20:59)
[2021-05-27] MEDS: BLOOD SUGAR DIAGNOSTIC 1 EACH STRIP VI SCH ×4 (07:58→22:03)
[2021-05-27 08:00] VITALS: BP 181/104
[2021-05-27] MEDS: MELOXICAM 7.5 MG TABLET PO SCH (08:12)
[2021-05-27] MEDS: FLUTICASONE PROPIONATE 16 GM BOTTLE NS SCH (08:12)
[2021-05-27] MEDS: GABAPENTIN 300 MG CAPSULE PO SCH ×3 (08:13→17:04)
[2021-05-27] MEDS: QUETIAPINE FUMARATE 25 MG TABLET PO SCH ×2 (08:13→21:00)
[2021-05-27] MEDS: DULOXETINE HCL 30 MG CAPSULE.DR PO SCH (08:14)
[2021-05-27] MEDS: CHOLECALCIFEROL (VITAMIN D 3) 400 UNIT TABLET PO SCH (08:14)
[2021-05-27] MEDS: LISINOPRIL (10MG) 10 MG TABLET PO SCH (08:14)
[2021-05-27] MEDS: NEOM/POLY B SULF/HC OTIC SUSP 10 ML BOTTLE RIGHT EAR SCH ×4 (08:22→21:12)
[2021-05-27] MEDS: INSULIN REGULAR, HUMAN 100 UNIT/ML 3 ML VIAL SQ PRN (11:50)
[2021-05-27 16:00] VITALS: BP 159/84
[2021-05-27 20:07] VITALS: BP 157/82
[2021-05-27] MEDS: clonazePAM 0.5 MG TABLET PO PRN (20:59)
[2021-05-27] MEDS: ATORVASTATIN 10 MG TABLET PO SCH (21:01)
[2021-05-27] MEDS: INSULIN GLARGINE, 100 UNIT/ML CARTRIDGE SQ SCH (23:28)
[2021-05-28] MEDS ORDERED: Z GUARD REMEDY 2 OZ OINT TP PRN (06:00)
[2021-05-28] MEDS: TRAMADOL HCL 50 MG TABLET PO SCH ×3 (06:00→17:52)
[2021-05-28 07:12] LABS: CALCIUM, SERUM 9.6 mg/dL (8.5-10.1); POTASSIUM 4.5 mmol/L (3.5-5.1)
[2021-05-28 08:00] VITALS: BP 128/74
[2021-05-28] MEDS: BLOOD SUGAR DIAGNOSTIC 1 EACH STRIP VI SCH ×4 (08:45→22:35)
[2021-05-28] MEDS: FLUTICASONE PROPIONATE 16 GM BOTTLE NS SCH (08:58)
[2021-05-28] MEDS: NEOM/POLY B SULF/HC OTIC SUSP 10 ML BOTTLE RIGHT EAR SCH ×4 (08:58→21:13)
[2021-05-28] MEDS: CHOLECALCIFEROL (VITAMIN D 3) 400 UNIT TABLET PO SCH (09:02)
[2021-05-28] MEDS: MELOXICAM 7.5 MG TABLET PO SCH (09:02)
[2021-05-28] MEDS: GABAPENTIN 300 MG CAPSULE PO SCH ×3 (09:02→17:51)
[2021-05-28] MEDS: DULOXETINE HCL 30 MG CAPSULE.DR PO SCH (09:02)
[2021-05-28] MEDS: QUETIAPINE FUMARATE 25 MG TABLET PO SCH ×2 (09:02→22:36)
[2021-05-28] MEDS: LISINOPRIL (10MG) 10 MG TABLET PO SCH (09:03)
[2021-05-28] MEDS: INSULIN REGULAR, HUMAN 100 UNIT/ML 3 ML VIAL SQ PRN (13:06)
[2021-05-28 16:00] VITALS: BP 147/88
[2021-05-28 19:49] VITALS: BP 153/74
[2021-05-28 20:25] VITALS: BP 153/74
--- NOTE | 2021-05-28 21:45 | NUR ---
RN NOTE: REFUSED WEEKLY SKIN ASSESSMENT PATIENT REFUSED WEEKLY SKIN ASSESSMENT AND PICTURES TO BE TAKEN, PATIENT STATED," I AM DOING OK, IT'S MY PRIVACY, I DON'T NEED YOU TO CHECK MY SKIN, I AM TELLING YOU THAT MY SKIN IS FINE." PATIENT IS UNCOOPERATIVE, PARANOID, BECAME ANXIOUS, IRRITABLE, RESTLESS AND NON REDIRECTABLE DURING SKIN ASSESSMENT. PATIENT ALSO REFUSED TO BE CLEANED BY THE STORE GROUP MANAGER AFTER USING THE TOILET AND INSISTED TO DI IT BY HERSELF. PATIENT ASKED THE NURSE TO STAY OUTSIDE THE TOILET AND WAIT FOR HER UNTIL SHE IS DONE. WILL CONTINUE TO MONITOR THE PATIENT FOR ANY CHANGE OF CONDITION.
[2021-05-28] MEDS: ATORVASTATIN 10 MG TABLET PO SCH (22:36)
[2021-05-28] MEDS: INSULIN GLARGINE, 100 UNIT/ML CARTRIDGE SQ SCH (22:46)
--- NOTE | 2021-05-28 22:47 | NUR ---
RN NOTE PATIENT'S BS IS 280 MG/DL, SCHEDULED LANTUS 7 UNITS ADMINISTERED ORDERED AFTER PATIENT HAD SNACK. WILL CONTINUE TO MONITOR FOR ANY CHANGE OF CONDITION.
[2021-05-28] MEDS: *INSULIN REGULAR(HUMULIN R)HUM 100 UNIT/ML VIAL SQ PRN (23:51)
--- NOTE | 2021-05-29 00:33 | NUR ---
RN NOTE: REFUSED TRAMADOL PATIENT REFUSED TO TAKE TRAMADOL 50 MG SCHEDULED. PATIENT IS PARANOID AND STATED," THIS IS NOT FOR ME, I HAVE TAKEN IT ALREADY. LET ME SLEEP" DESPITE OF EXPLANATIONS, PATIENT CONTINUED TO REFUSE TRAMADOL.
[2021-05-29] MEDS: ACETAMINOPHEN 325 MG TABLET PO PRN (03:19)
--- NOTE | 2021-05-29 03:19 | NUR ---
RN NOTE: PAIN PATIENT C/O RIGHT HIP PAIN AND WANTED TO TAKE PAIN MEDICINE. UNABLE TO SCALE THE PAIN LEVEL DUE TO CONFUSION. PRN TYLENOL 650 MG PO ADMINISTERED. WILL CONTINUE TO MONITOR.
--- NOTE | 2021-05-29 03:45 | NUR ---
RN NOTE PATIENT WOKE UP, USED BED SIDE COMMODE, SNACKS/PO FLUIDS OFFERED AND PATIENT TOLERATED WELL.
[2021-05-29] MEDS: TRAMADOL HCL 50 MG TABLET PO SCH ×4 (06:06→17:08)
[2021-05-29] MEDS: BLOOD SUGAR DIAGNOSTIC 1 EACH STRIP VI SCH ×4 (07:41→21:34)
[2021-05-29 08:00] VITALS: BP 125/65
--- NOTE | 2021-05-29 08:57 | NUR ---
J CARLOS Family Contact: J CARLOS contacted patient's son Newton ([phone]), per [facility] request. J CARLOS left a voicemail.
[2021-05-29] MEDS: MELOXICAM 7.5 MG TABLET PO SCH (09:28)
[2021-05-29] MEDS: CHOLECALCIFEROL (VITAMIN D 3) 400 UNIT TABLET PO SCH (09:28)
[2021-05-29] MEDS: QUETIAPINE FUMARATE 25 MG TABLET PO SCH ×2 (09:32→21:08)
[2021-05-29] MEDS: GABAPENTIN 300 MG CAPSULE PO SCH ×3 (09:33→17:08)
[2021-05-29] MEDS: LISINOPRIL (10MG) 10 MG TABLET PO SCH (09:33)
[2021-05-29] MEDS: NEOM/POLY B SULF/HC OTIC SUSP 10 ML BOTTLE RIGHT EAR SCH ×4 (09:34→21:10)
[2021-05-29] MEDS: FLUTICASONE PROPIONATE 16 GM BOTTLE NS SCH (09:34)
[2021-05-29] MEDS: INSULIN REGULAR, HUMAN 100 UNIT/ML 3 ML VIAL SQ PRN ×2 (11:36→17:12)
[2021-05-29 16:00] VITALS: BP 129/60
[2021-05-29 19:47] VITALS: BP 140/83
[2021-05-29] MEDS: ATORVASTATIN 10 MG TABLET PO SCH (21:08)
[2021-05-29] MEDS: *INSULIN REGULAR(HUMULIN R)HUM 100 UNIT/ML VIAL SQ PRN (21:32)
[2021-05-29] MEDS: INSULIN GLARGINE, 100 UNIT/ML CARTRIDGE SQ SCH (21:34)
[2021-05-29] MEDS: TEMAZEPAM 7.5 MG CAPSULE PO PRN (21:49)
--- NOTE | 2021-05-29 21:49 | NUR ---
[facility]-RN NOTES: INSOMNIA PATIENT C/O INABILITY TO SLEEP. PRN RESTORIL 7.5MG PO GIVEN ORDERED. WILL CONTINUE TO MONITOR.
[2021-05-30] MEDS: TRAMADOL HCL 50 MG TABLET PO SCH ×4 (00:08→17:01)
[2021-05-30] MEDS: ACETAMINOPHEN 325 MG TABLET PO PRN (04:03)
[2021-05-30] MEDS: BLOOD SUGAR DIAGNOSTIC 1 EACH STRIP VI SCH ×3 (07:02→16:56)
[2021-05-30 07:48] LABS: BASOPHILS # (AUTO) 0.1 K/uL (0.0-0.2); BASOPHILS % (AUTO) 0.6 % (0.0-2.0); HEMATOCRIT 31 % (33-45); HEMOGLOBIN 10.3 g/dL (11.5-14.8); LYMPHOCYTES # (AUTO) 1.2 K/uL (0.8-4.8); LYMPHOCYTES % (AUTO) 14.3 % (20.0-44.0); MEAN CORPUSCULAR HGB CONC 33 g/dl (31.0-36.0); MEAN CORPUSCULAR VOLUME 94 fL (82-100); MONOCYTES # (AUTO) 0.9 K/uL (0.1-1.30); MONOCYTES % (AUTO) 10.5 % (2.0-12.0); NEUTROPHILS # (AUTO) 6.2 K/uL (1.8-8.9); NEUTROPHILS % (AUTO) 71.6 % (43.0-81.0); PLATELET COUNT (AUTO) 329 K/uL (150-450); RED BLOOD CELL COUNT(AUTO) 3.29 MIL/uL (4.0-5.2); WHITE BLOOD COUNT (AUTO) 8.6 K/uL (4.3-11.0)
[2021-05-30 07:57] LABS: CALCIUM, SERUM 9.4 mg/dL (8.5-10.1); CREATININE 1.1 mg/dL (0.6-1.3); POTASSIUM 3.9 mmol/L (3.5-5.1)
[2021-05-30 08:00] VITALS: BP 117/72
--- NOTE | 2021-05-30 08:07 | NUR ---
SW Discharge Plan: Patient will be discharged to [facility] located at [address] [place] [address], [facility]; ([phone]) (F:[phone]). Transportation will be provided by the facility [facility] admin ([phone]) set it up between 2-3PM. Admin Moo ([phone]) has approved pt and stated pt is welcomed today. Patients son Newton ([phone]) is aware and agreeable with discharge. Patient is alert and oriented x2 and happy to be going to the facility. Patient denies suicidal or homicidal ideation. Pt denies visual/auditory hallucinations. Pt will follow up with (Bilingual Administrative Assistant) Dr. Mahoney at the facility who will monitor and provide pts psychotropic medications. Pt presents with euthymic mood and congruent affect.
[2021-05-30] MEDS: FLUTICASONE PROPIONATE 16 GM BOTTLE NS SCH (08:46)
[2021-05-30] MEDS: NEOM/POLY B SULF/HC OTIC SUSP 10 ML BOTTLE RIGHT EAR SCH ×2 (08:46→12:27)
[2021-05-30] MEDS: GABAPENTIN 300 MG CAPSULE PO SCH ×3 (08:56→17:01)
[2021-05-30] MEDS: MELOXICAM 7.5 MG TABLET PO SCH (08:56)
[2021-05-30] MEDS: LISINOPRIL (10MG) 10 MG TABLET PO SCH (08:57)
[2021-05-30] MEDS: CHOLECALCIFEROL (VITAMIN D 3) 400 UNIT TABLET PO SCH (08:57)
[2021-05-30] MEDS: QUETIAPINE FUMARATE 25 MG TABLET PO SCH (08:58)
[2021-05-30] MEDS ORDERED: DULOXETINE HCL 20 MG CAPSULE.DR PO SCH (09:00)
--- NOTE | 2021-05-30 09:49 | NUR ---
J CARLOS Family Contact: J CARLOS received a call from patient's son Newton ([phone]) and SW returned phone call, however, it went to voicemail. SW left a voicemail.
[2021-05-30] MEDS: INSULIN REGULAR, HUMAN 100 UNIT/ML 3 ML VIAL SQ PRN ×2 (12:22→16:59)
--- NOTE | 2021-05-30 14:30 | NUR ---
[facility]: J CARLOS faxed patient's prescriptions to [facility] ([phone]) per pt's assisted living admin [facility] request ([phone]).
[2021-05-30 16:04] VITALS: BP 105/58
--- NOTE | 2021-05-30 17:45 | NUR ---
Patient has been discharged to [facility] via transport provided by facility. Pt left unit at 1735 accompanied by [facility] staff. Patients son Newton ([phone]) is aware and agreeable with discharge. Patient is alert and oriented x2 and happy to be going to the facility. Patient denies suicidal or homicidal ideation. Pt denies visual/auditory hallucinations. Pt will follow up with (Bank Appraiser) Dr. Mahoney at the facility who will monitor and provide pts psychotropic medications. Medication prescriptions given along with all instructions for after care and exit care documents in patient's discharge packet. All valuables and belongings returned and signed. RN tried to contact [facility] pharmacy in order to read Rx, however placed on hold for over 20 minutes with no answer. linux administrator was called and informed.
--- NOTE | 2021-05-31 12:06 | NUR ---
[facility]: J CARLOS received a call from Renard ([phone]) director at [facility] concern of pt's insulin being $500 dollars and if the doctor can substitute this to another brand. J CARLOS notified ESTELA Bradley and Kirk notified doctor Miguel Angel and the doctor was in contact with Renard. J CARLOS followed up with Renard and stated that the hope of the insulin is $500 dollars and he has home health arranging this for pt.
== END 2021-05-30 17:35 | DRG 885 ==
LOC: ER 18:58 → GPS 20:58
PROVIDERS: ADMIT Nurse Practitioner Psychiatric/Mental Health; ATTEND Internal Medicine
DX: F29 Unspecified psychosis not due to a substance or known physiological condition (principal); E11.65 Type 2 diabetes mellitus with hyperglycemia; F33.3 Major depressive disorder, recurrent, severe with psychotic symptoms; M06.9 Rheumatoid arthritis, unspecified; I10 Essential (primary) hypertension; E78.5 Hyperlipidemia, unspecified; F41.9 Anxiety disorder, unspecified; G89.29 Other chronic pain; M62.81 Muscle weakness (generalized); Z73.6 Limitation of activities due to disability; R26.81 Unsteadiness on feet; M41.85 Other forms of scoliosis, thoracolumbar region; G31.83 Neurocognitive disorder with Lewy bodies; F02.80 Dementia in other diseases classified elsewhere, unspecified severity, without behavioral disturbance, psychotic disturbance, mood disturbance, and anxiety; E05.90 Thyrotoxicosis, unspecified without thyrotoxic crisis or storm; H60.91 Unspecified otitis externa, right ear; E11.42 Type 2 diabetes mellitus with diabetic polyneuropathy; Z20.822 Contact with and (suspected) exposure to COVID-19; Z79.4 Long term (current) use of insulin
CPT/HCPCS: 36415; 71045-TC; 72100-TC; 73521; 80048-TC; 80053-TC; 80061-TC; 80076-TC; 81001; 82962-TC; 85025-TC; 87081-TC; C9803; G0480; J1815